=== PATIENT | female | born 1940 | race Caucasian/White ===

== ENCOUNTER 2021-07-01 14:42 | Inpatient (IN) | payer OTHER, MEDICARE ==
[2021-07-01] MEDS ORDERED: Promethazine HCl 25 MG/ML VIAL ONE (14:46)
[2021-07-01 15:27] LABS: Hemoglobin 12.4 g/dL (12.0-16.0); Mean Corpuscular HGB CONC 34.1 g/dL (32.0-36.0); Mean Corpuscular Hemoglobin 32.5 pg (27.0-31.0); Mean Corpuscular Volume 95.1 fL (78.0-98.0); Mean Platelet Volume 7.3 fL (7.4-10.4); Platelet Count 246 thou/uL (130-400); RBC Distribution Width 11.8 % (11.5-14.5); Red Blood Cell (RBC) Count 3.83 mill/uL (4.20-5.40); White Blood Cell (WBC) Count 10.4 thou/uL (4.8-10.8)
[2021-07-01 15:31] LABS: Bilirubin Negative (Negative); Blood, Urine Negative (Negative); Clarity Clear (Clear); Glucose, Urine (Dipstick) Normal (Negative); Ketone, Urine Trace mg/dL (Negative); Leukocyte Negative Leu/uL (Negative); Nitrite Negative (Negative); Protein, Urine (Dipstick) Negative (Neg-Trace); Specific Gravity, Urine 1.015 (1.002-1.036); Urobilinogen Normal mg/dL (Less than 2); pH, Urine 5.5 (5.0-9.0)
[2021-07-01 15:38] LABS: INR-International Normal Ratio 0.9; Prothrombin Time 12.5 sec (12.0-14.7)
[2021-07-01 15:39] LABS: PTT 21.2 sec (22.9-36.1)
[2021-07-01] MEDS ORDERED: hydrALAZINE 20 MG/ML VIAL SLOW IVP PRN (15:46)
[2021-07-01] MEDS ORDERED: Dextrose 5% in Water 1,000 ML IV PRN (15:46)
[2021-07-01] MEDS ORDERED: Insulin Regular 300 UNITS/3 ML VIAL SC PRN (15:46)
[2021-07-01] MEDS ORDERED: Dextrose 50% Abboject 50 ML SYRINGE SLOW IVP PRN (15:46)
[2021-07-01 15:47] LABS: ALT (SGPT) 13 U/L (8-55); AST (SGOT) 27 U/L (5-34); Albumin 3.8 g/dL (3.4-4.8); Alkaline Phosphatase 52 U/L (40-110); Anion Gap 17 mmol/L (10-20); BUN (Urea Nitrogen) 19 mg/dL (9.8-20.1); Bilirubin, Total 0.5 mg/dL (0.2-1.2); Calc. Creatinine Clearance 0 mL/min (70-130); Calcium 9.6 mg/dL (7.8-10.44); Carbon Dioxide 22 mmol/L (23-31); Chloride 104 mmol/L (98-107); Globulin 3.9 g/dL (2.4-3.5); Glucose 137 mg/dL (83-110); Potassium 3.9 mmol/L (3.5-5.1); Protein, Total 7.7 g/dL (5.8-8.1); Sodium 139 mmol/L (136-145)
[2021-07-01] MEDS ORDERED: Famotidine/PF 20 mg/2ml Vial ONE (15:50)
[2021-07-01] MEDS ORDERED: Calcium Carbonate 500 MG ChewTAB ONE (15:51)
[2021-07-01] MEDS ORDERED: Morphine 4 MG/ML VIAL ONE (15:51)
[2021-07-01 15:52] LABS: Band 43 % (5-11); Eosinophils 1 % (0-10); Lymphocytes 4 % (21-51); MDiff Complete? YES; Monocytes 2 % (0-10); Neutrophil 50 % (42-75); Platelet Morphology Comment Appears Adequate; RBC Morphology Normal
[2021-07-01] MEDS ORDERED: Morphine 4 MG/ML VIAL SLOW IVP PRN (15:59)
[2021-07-01] MEDS ORDERED: Calcium Carbonate 500 MG ChewTAB PO PRN (16:22)
[2021-07-01] MEDS: Ondansetron PF 4 MG/2 ML Vial IVP PRN (17:47)
[2021-07-01] MEDS: Morphine 4 MG/ML VIAL SLOW IVP PRN (17:47)
[2021-07-01] MEDS: Acetaminophen 500 MG TAB PO SCH ×3 (17:48→23:23)
[2021-07-01] MEDS: Sodium Chloride 0.9% 1,000 ML IV SCH (17:48)
[2021-07-01] MEDS: Famotidine/PF 20 mg/2ml Vial SLOW IVP SCH (20:11)
[2021-07-01] MEDS: Senokot S 8.6-50 MG TAB PO SCH (20:13)
[2021-07-02 00:55] VITALS: BMI 29.7
[2021-07-02] MEDS: Sodium Chloride 0.9% 1,000 ML IV SCH ×2 (02:42→15:23)
[2021-07-02 04:02] LABS: #Lymphocytes 0.7 thou/uL (1.20-3.40); #Monocytes 0.5 thou/uL (0.11-0.59); #Neutrophils 3.6 thou/uL (1.40-6.50); %Basophils 0.4 % (0.0-1.0); %Eosinophils 0.7 % (0.0-10.0); %Neutrophils 73.9 % (42.0-75.0); Hemoglobin 10.7 g/dL (12.0-16.0); Mean Corpuscular HGB CONC 33.4 g/dL (32.0-36.0); Mean Corpuscular Hemoglobin 31.5 pg (27.0-31.0); Mean Corpuscular Volume 94.4 fL (78.0-98.0); Mean Platelet Volume 7.2 fL (7.4-10.4); Platelet Count 218 thou/uL (130-400); RBC Distribution Width 11.8 % (11.5-14.5); White Blood Cell (WBC) Count 4.9 thou/uL (4.8-10.8)
[2021-07-02 04:29] LABS: Anion Gap 11 mmol/L (10-20); BUN (Urea Nitrogen) 21 mg/dL (9.8-20.1); Calc. Creatinine Clearance 83 mL/min (70-130); Calcium 8.3 mg/dL (7.8-10.44); Carbon Dioxide 25 mmol/L (23-31); Chloride 106 mmol/L (98-107); Glucose 110 mg/dL (83-110); Magnesium 1.8 mg/dL (1.6-2.6); Phosphorus 2.8 mg/dL (2.3-4.7); Potassium 3.7 mmol/L (3.5-5.1); Sodium 138 mmol/L (136-145)
[2021-07-02] MEDS: Acetaminophen 500 MG TAB PO SCH ×4 (05:30→20:56)
[2021-07-02] MEDS: Polyethylene Glycol 3350 17 GM Packet PO SCH (08:48)
[2021-07-02] MEDS: Famotidine/PF 20 mg/2ml Vial SLOW IVP SCH ×2 (08:48→20:55)
[2021-07-02] MEDS: Morphine 4 MG/ML VIAL SLOW IVP PRN (08:48)
[2021-07-02] MEDS: Senokot S 8.6-50 MG TAB PO SCH ×2 (08:48→20:53)
[2021-07-02] MEDS ORDERED: Potassium Chloride 40 MEQ, Magnesium Sulfate 2 GM in Sodium Chloride 0.9% 250 ML 250 ML IVPB SCH (09:00)
[2021-07-02] MEDS ORDERED: FLU VACC QS2021-22(65YR UP)/PF 240 MCG/0.7 ML SYRINGE IM ONE (09:00)
[2021-07-02] MEDS ORDERED: Hydrocortisone Sod Succ/PF 100 mg/2 ml Vial IVP SCH (11:45)
[2021-07-02] MEDS ORDERED: traMADol HCl 50 MG TAB PO PRN ×2 (15:45)
[2021-07-02] MEDS: Hydrocortisone Sod Succ/PF 100 mg/2 ml Vial IVP SCH (18:47)
[2021-07-02] MEDS: Ondansetron PF 4 MG/2 ML Vial IVP PRN (20:55)
[2021-07-03] MEDS: Hydrocortisone Sod Succ/PF 100 mg/2 ml Vial IVP SCH ×3 (00:15→11:57)
[2021-07-03] MEDS: Acetaminophen 500 MG TAB PO SCH ×3 (02:30→15:11)
[2021-07-03] MEDS ORDERED: Rivaroxaban 10 MG TAB PO SCH (08:00)
[2021-07-03 08:09] VITALS: TEMP 98.1
[2021-07-03] MEDS ORDERED: Scopolamine 1.5 mg/72 hour Patch TOP SCH (08:45)
[2021-07-03] MEDS: Polyethylene Glycol 3350 17 GM Packet PO SCH (08:55)
[2021-07-03] MEDS: Senokot S 8.6-50 MG TAB PO SCH (08:55)
[2021-07-03] MEDS ORDERED: Famotidine 20 MG TAB PO SCH (09:00)
[2021-07-03 15:46] VITALS: BP 132/70
== END 2021-07-03 17:55 | disposition home or self-care (01) | DRG 86 ==
LOC: ERS 14:42 → IMCU/EMU 15:50 → SURG A 07-02 22:17
PROVIDERS: ADMIT Specialist; ATTEND Surgery
DX: S06.5X0A Traumatic subdural hemorrhage without loss of consciousness, initial encounter (principal); S12.110A Anterior displaced Type II dens fracture, initial encounter for closed fracture; E27.40 Unspecified adrenocortical insufficiency; E03.9 Hypothyroidism, unspecified; I10 Essential (primary) hypertension; S06.6X0A Traumatic subarachnoid hemorrhage without loss of consciousness, initial encounter; Z96.643 Presence of artificial hip joint, bilateral; S01.91XA Laceration without foreign body of unspecified part of head, initial encounter; W01.10XA Fall on same level from slipping, tripping and stumbling with subsequent striking against unspecified object, initial encounter; E87.6 Hypokalemia; E83.42 Hypomagnesemia; E83.39 Other disorders of phosphorus metabolism; Z91.041 Radiographic dye allergy status; Z90.49 Acquired absence of other specified parts of digestive tract; Z98.84 Bariatric surgery status; Z86.711 Personal history of pulmonary embolism; Z79.01 Long term (current) use of anticoagulants
CPT/HCPCS: 36415; 36416; 70450; 80048; 81003; 82533; 83735; 84100; 84484; 85025; 96374; 96375; G0390; J1720; J2270; J2405; J2550; J3475; J3480; J7050; S0028

== ENCOUNTER 2024-09-09 12:04 | Observation (INO) | payer MEDICARE, OTHER, SELFPAY ==
[2024-09-09 13:36] LABS: #Basophils 0.04 10x3/uL (0.0-0.2); %Basophils 0.7 % (0.0-1.0); %Eosinophils 0.5 % (0.0-10.0); %Lymphocytes 15.4 % (21.0-51.0); %Monocytes 6.8 % (0.0-10.0); %Neutrophils 76.2 % (42.0-75.0); Hematocrit 39.7 % (36.0-47.0); Hemoglobin 13.7 g/dL (12.0-16.0); Mean Corpuscular HGB CONC 34.5 g/dL (32.0-36.0); Mean Corpuscular Hemoglobin 30.9 pg (27.0-31.0); Mean Corpuscular Volume 89.6 fL (78.0-98.0); Mean Platelet Volume 9.6 fL (7.4-10.4); Platelet Count 267 10x3/uL (130-400); RBC Distribution Width 12.4 % (11.5-14.5); Red Blood Cell (RBC) Count 4.43 mill/uL (4.20-5.40)
[2024-09-09 14:19] LABS: ALT (SGPT) 8 U/L (8-55); AST (SGOT) 16 U/L (5-34); Albumin 3.9 g/dL (3.4-4.8); Alkaline Phosphatase 37 U/L (40-110); Anion Gap 18 mmol/L (10-20); BUN (Urea Nitrogen) 20 mg/dL (9.8-20.1); Bilirubin, Total 0.5 mg/dL (0.2-1.2); Calc. Creatinine Clearance 0 mL/min (70-130); Calcium 9.4 mg/dL (7.8-10.44); Carbon Dioxide 20 mmol/L (23-31); Chloride 102 mmol/L (98-107); Estimated GFR 55; Globulin 3.4 g/dL (2.4-3.5); Glucose 89 mg/dL (83-110); Potassium 3.3 mmol/L (3.5-5.1); Protein, Total 7.3 g/dL (5.8-8.1); Sodium 137 mmol/L (136-145)
[2024-09-09 15:19] LABS: Troponin I 0.028 ng/mL (< 0.028)
[2024-09-09] MEDS ORDERED: Aspirin Chewable 81 MG TAB ONE (17:33)
[2024-09-09 20:24] LABS: Troponin I 0.029 ng/mL (< 0.028)
[2024-09-09 20:37] VITALS: BMI 28.4
[2024-09-09 22:18] LABS: Troponin I 0.038 ng/mL (< 0.028)
[2024-09-10 07:49] VITALS: BP 130/60; TEMP 97.8
[2024-09-10] MEDS ORDERED: Rivaroxaban 10 MG TAB PO SCH (09:00)
[2024-09-10] MEDS ORDERED: Hydrochlorothiazide 25 MG TAB PO SCH (09:00)
[2024-09-10] MEDS ORDERED: Temazepam 15 MG CAP PO PRN (09:17)
[2024-09-10] MEDS ORDERED: Levothyroxine Sodium 25 MCG TAB PO SCH (10:30)
[2024-09-10] MEDS ORDERED: Thyroid 30 MG TAB PO SCH (10:30)
[2024-09-11] MEDS ORDERED: Levothyroxine Sodium 25 MCG TAB PO SCH (06:00)
[2024-09-11] MEDS ORDERED: Thyroid 30 MG TAB PO SCH (06:00)
== END 2024-09-10 12:39 | disposition home or self-care (01) ==
LOC: ERS 12:04 → OBS 18:08
PROVIDERS: ADMIT Internal Medicine; ATTEND Internal Medicine
DX: R00.0 Tachycardia, unspecified (principal); E78.5 Hyperlipidemia, unspecified; E03.9 Hypothyroidism, unspecified; I10 Essential (primary) hypertension; Z96.643 Presence of artificial hip joint, bilateral; Z98.890 Other specified postprocedural states; Z90.710 Acquired absence of both cervix and uterus; Z91.041 Radiographic dye allergy status; Z86.711 Personal history of pulmonary embolism; Z90.49 Acquired absence of other specified parts of digestive tract; Z79.899 Other long term (current) drug therapy
CPT/HCPCS: 71045; 82533; 83690; 83880; 84484 ×2; 85379; 93005; 99285; G0378 ×3; 36415; 80053; 84443; 85025